=== PATIENT | female | born 1995 | race Caucasian/White ===

== ENCOUNTER → 2016-11-17 | Outpatient (CLI) | payer OTHER ==
[~2016-11-17] MED LIST: L-NO1TBD5 PO
--- NOTE | 2016-11-17 09:49 | RAD ---
Exam performed: X-ray abdomen KUB. Clinical Indication: Abdominal pain with diarrhea, ongoing for 2 years Date of Service: 11/16/16 Comparison: None available Supine radiograph of the abdomen and pelvis reveals no evidence of ileus or obstruction. Occasional scattered stool in the colon Definite pathologic calcification or organomegaly is not identified. The visualized osseous structures appear unremarkable. Impression: 1. No acute abnormality seen.
== END | disposition home or self-care (01) ==
LOC: DXRADRC 09:38
PROVIDERS: ATTEND Physician Assistant Medical
DX: R19.7 Diarrhea, unspecified (principal); R10.9 Unspecified abdominal pain
CPT/HCPCS: 74000